=== PATIENT | male | born 1955 | race Caucasian/White ===

== ENCOUNTER 2017-09-01 07:52 | Emergency (ER) | payer OTHER ==
[~2017-09-01] VITALS: Ht 180.3 cm; Wt 116.0 kg
[2017-09-01] MEDS ORDERED: ASPIRIN 81 MG TABLET CHEW PO ONE (08:00)
[2017-09-01] MEDS ORDERED: ADAL20KI SC (08:13)
[2017-09-01] MEDS ORDERED: LACT1CAP43 PO (08:14)
[2017-09-01] MEDS ORDERED: ASPIRIN 81 MG TABLET CHEW ONE (08:29)
[2017-09-01 08:30] LABS: BASOPHILS # (AUTO) 0.05 x10^3/uL (0-0.1); BASOPHILS % (AUTO) 1 % (0-1); EOSINOPHILS # (AUTO) 0.24 x10^3/uL (0-0.4); EOSINOPHILS % (AUTO) 4 % (1-7); LYMPHOCYTES # (AUTO) 2.07 x10^3/uL (1-3.4); LYMPHOCYTES % (AUTO) 33 % (22-44); MD NO; MEAN CORPUSCULAR HEMOGLOBIN 20.8 pg (27.5-34.5); MEAN CORPUSCULAR HGB CONC 31.8 g/dL (33.2-36.2); MEAN CORPUSCULAR VOLUME 65.3 fL (81-97); MONOCYTES # (AUTO) 0.52 x10^3/uL (0.2-0.8); MONOCYTES % (AUTO) 8 % (2-9); NEUTROPHILS # (AUTO) 3.49 x10^3/uL (1.8-6.8); NEUTROPHILS % (AUTO) 55 % (42-75); PLATELET COUNT 197 x10^3/uL (130-400); RED BLOOD COUNT 6.53 x10^6/uL (4.38-5.82); RED CELL DISTRIBUTION WIDTH 15.9 % (9.4-14.8)
[2017-09-01 08:31] LABS: ALBUMIN 4.6 g/dL (3.4-5.0); ANION GAP 8 mmol/L (5-15); CALCIUM 8.8 mg/dL (8.5-10.1); CHLORIDE 106 mmol/L (98-107); CREATININE 1.14 mg/dL (0.7-1.3)
[2017-09-01 08:33] LABS: TROPONIN I < 0.015 ng/mL (0.000-0.045)
[2017-09-01] MEDS ORDERED: KETOROLAC 30 MG/1 ML IVPush ONE (09:00)
[2017-09-01] MEDS ORDERED: KETOROLAC 30 MG/1 ML ONE (09:08)
[2017-09-01 10:30] VITALS: BP 128/78
== END 2017-09-01 10:32 | disposition home or self-care (01) ==
LOC: ED 10:30
DX: R07.89 Other chest pain (principal)
CPT/HCPCS: 36415; 71046; 80048; 82040; 84484; 85025; 93005; 96374; 99285; J1885